=== PATIENT | female | born 1935 | race Caucasian/White ===

== ENCOUNTER 2016-12-29 06:37 | Day surgery (SDC) | payer OTHER, BC ==
[~2016-12-29] VITALS: Ht 152.4 cm; Wt 106.5 kg
[~2016-12-29 06:37] MED LIST: MAG-OXIDE400 MG PO; NORVASC2.5 MG PO; SYNTHROID112 MCG PO; VITAMIN B COMP1 EACH PO; VITAMIN D31000 UNIT PO; WELCHOL3.75 GM PO
[2016-12-29 07:22] VITALS: BP 172/77
[2016-12-29 11:15] VITALS: BP 145/66
[2016-12-29 12:09] VITALS: BP 136/55
== END 2016-12-29 12:20 | disposition home or self-care (01) ==
LOC: SDC 06:37
DX: H33.312 Horseshoe tear of retina without detachment, left eye (principal); H35.81 Retinal edema; I10 Essential (primary) hypertension; E03.9 Hypothyroidism, unspecified
CPT/HCPCS: J0360; J0690; J0713; J3300